=== PATIENT | female | born 1985 | race Two or more races ===

== ENCOUNTER 2019-01-10 16:46 | Emergency (ER) | payer OTHER ==
[2019-01-10 16:57] VITALS: BP 108/56; PULSE 94; TEMP 98.2; BMI 25.3
--- NOTE | 2019-01-10 17:26 | PDOC ---
History of Present Illness - General Chief Complaint: Vaginal Bleeding Stated Complaint: VAGINAL BLEEDING Time Seen by Provider: 01/10/19 17:18 Past History - Travel Traveled outside of the country in the last 30 days: No Close contact w/someone who was outside of country & ill: No - Past History Allergies/Adverse Reactions: Allergies No Known Allergies Allergy (Verified 01/10/19 16:52) Immunization Status Up to Date: Yes - Social History Smoking Status: Never smoked Review of Systems - Review of Systems Able to Perform ROS?: Yes Comments:: 01/10/19 19:36 CONSTITUTIONAL: Absent: fever, chills, diaphoresis, generalized weakness, malaise, loss of appetite HEENT: Absent: rhinorrhea, nasal congestion, throat pain, throat swelling, difficulty swallowing, mouth swelling, ear pain, eye pain, visual Changes CARDIOVASCULAR: Absent: chest pain, loss of consciousness, palpitations, irregular heart rate, peripheral edema RESPIRATORY: Absent: cough, shortness of breath, dyspnea with exertion, orthopnea, wheezing, stridor, hemoptysis GASTROINTESTINAL: Absent: abdominal pain, abdominal distension, nausea, vomiting, diarrhea, constipation, melena, hematochezia GENITOURINARY: Present: vaginal bleeding Absent: dysuria, frequency, urgency, hesitancy, hematuria, flank pain, genital pain MUSCULOSKELETAL: Absent: myalgia, arthralgia, joint swelling SKIN: Absent: rash, itching, pallor HEMATOLOGIC/IMMUNOLOGIC: Absent: easy bleeding, easy bruising, lymphadenopathy, frequent infections ENDOCRINE: Absent: unexplained weight gain, unexplained weight loss, heat intolerance, cold intolerance NEUROLOGIC: Absent: headache, focal weakness or paresthesias, dizziness, unsteady gait, seizure, mental status changes, bladder or bowel incontinence PSYCHIATRIC: Absent: anxiety, depression, suicidal or homicidal ideation, hallucinations. Is the patient limited [place] proficient: No *Physical Exam - Vital Signs Last Vital Signs Temp Pulse Resp BP Pulse Ox 98.2 F 94 H 17 108/56 L 100 01/10/19 16:53 01/10/19 16:53 01/10/19 16:53 01/10/19 16:53 01/10/19 16:53 - Physical Exam Comments: 01/10/19 19:37 GENERAL: Well developed, well nourished. Awake and alert. No acute distress. HEENT: Normocephalic, atraumatic. PERRLA, EOMI. No conjunctival pallor. Sclera are non- icteric. Moist mucous membranes. Oropharynx is clear. NECK: Supple. Full ROM. No JVD. Carotid pulses 2+ and symmetric, without bruits. No thyromegaly. No lymphadenopathy. CARDIOVASCULAR: Regular rate and rhythm. No murmurs, rubs, or gallops. Distal pulses are 2+ and symmetric. PULMONARY: No evidence of respiratory distress. Lungs clear to auscultation bilaterally. No wheezing, rales or rhonchi. ABDOMINAL: Soft. Non-tender. Non-distended. No rebound or guarding. No organomegaly. Normoactive bowel sounds. Pelvic: External genitalia normal without lesions.Vaginal vault is with dark brown discharge. No clots noted. Cervix is long and closed. No cervical motion tenderness.Uterus is nontender and normal in size. Adnexa are nontender and without masses. MUSCULOSKELETAL Normal range of motion at all joints. No bony deformities or tenderness. No CVA tenderness. EXTREMITIES: No cyanosis. No clubbing. No edema. No calf tenderness. SKIN: Warm and dry. Normal capillary refill. No rashes. No jaundice. NEUROLOGICAL: Alert, awake, appropriate. Cranial nerves 2-12 intact. No deficits to light touch and temperature in face, upper extremities and lower extremities. No motor deficits in the in face, upper extremities and lower extremities. Normoreflexic in the upper and lower extremities. Normal speech. Toes are down- going bilaterally. Gait is normal without ataxia. PSYCHIATRIC: Cooperative. Good eye contact. Appropriate mood and affect. ED Treatment Course - LABORATORY CBC & Chemistry Diagram: 01/10/19 18:00 01/10/19 18:00 - RADIOLOGY Radiology Studies Ordered: Category Date Time Status TRANSVAGINAL US PREG [US] Stat Ultrasound 01/10/19 17:19 Ordered *DC/Admit/Observation/Transfer Diagnosis at time of Disposition: Miscarriage - Discharge Dispostion Disposition: HOME Condition at time of disposition: Stable Decision to Admit order: No - Referrals Referrals: Racquel Brower DO [Staff Physician] - - Patient Instructions Printed Discharge Instructions: DI for Miscarriage Additional Instructions: You most likely had a miscarriage Please return in 2 days to have repeat blood work Drink plenty of fluids You may take Tylenol as needed for pain. Follow the instructions on the bottle Return to the ED for any new or worsening symptoms - Post Discharge Activity
[2019-01-10 18:08] LABS: BASO % 0.5 % (0-2.0); EOS % 1.5 % (0-4.5); HEMATOCRIT 40.1 % (32.4-45.2); HEMOGLOBIN 13.1 GM/dL (10.7-15.3); LYMPH % 19.8 % (8-40); MCH 28.2 pg (25.7-33.7); MCHC 32.7 g/dl (32.0-36.0); MEAN CELL VOLUME 86.3 fl (80-96); MEAN PLT VOLUME 7.8 fl (7.5-11.1); MONO % 6.9 % (3.8-10.2); NEUT % 71.3 % (42.8-82.8); PLATELET COUNT 317 K/MM3 (134-434); RBC 4.65 M/mm3 (3.60-5.2); RDW 13.4 % (11.6-15.6); WHITE BLOOD COUNT 8.3 K/mm3 (4.0-10.0)
[2019-01-10 18:40] LABS: ALBUMIN 3.9 g/dl (3.4-5.0); ALK PHOS 63 U/L (45-117); BILIRUBIN,TOTAL 0.3 mg/dL (0.2-1); BLOOD UREA NITROGEN 13 mg/dL (7-18); CALCIUM 9.3 mg/dL (8.5-10.1); CO2 23 mmol/L (21-32); CREATININE 0.5 mg/dL (0.55-1.3); GLUCOSE,RANDOM 131 mg/dL (74-106); SGOT/AST 15 U/L (15-37); SGPT/ALT 19 U/L (13-61); TOT PROT 7.5 g/dl (6.4-8.2)
[2019-01-10 18:47] LABS: EPI CELLS 2.4 /HPF (0-5); URINE APPEARANCE CLEAR; URINE BACTERIA 59.8 /hpf (NEGATIVE); URINE BILIRUBIN NEGATIVE (NEGATIVE); URINE CASTS 1 /hpf (0-8); URINE COLOR YELLOW; URINE GLUCOSE (UA) 1+ (NEGATIVE); URINE KETONE NEGATIVE (NEGATIVE); URINE LEUK ESTERASE TRACE (NEGATIVE); URINE NITRITE NEGATIVE (NEGATIVE); URINE PROTEIN NEGATIVE (NEGATIVE); URINE RBC 28 /hpf (0-4); URINE WBC 1 /hpf (0-5)
[2019-01-10 19:28] LABS: ANION GAP 8 MMOL/L (8-16); CHLORIDE 108 mmol/L (98-107); SODIUM 139 mmol/L (136-145)
== END 2019-01-10 21:55 | disposition home or self-care (01) ==
LOC: JER 16:46
DX: O26.891 Other specified pregnancy related conditions, first trimester (principal); O02.1 Missed abortion; Z3A.01 Less than 8 weeks gestation of pregnancy
CPT/HCPCS: 36415; 76817-TC; 80053; 81003; 84702; 85025; 86850; 86900; 86901; 87086; 99282-25

== ENCOUNTER 2019-01-16 11:07 | Emergency (ER) | payer OTHER ==
[2019-01-16 11:28] VITALS: BP 101/60; PULSE 82; TEMP 98.1; BMI 25.1
--- NOTE | 2019-01-16 12:08 | PDOC ---
History of Present Illness - General History Source: Patient, Spouse <Purnima Blanco - Last Filed: 01/16/19 16:46> <Allyn Solares - Last Filed: 01/16/19 18:46> - General Chief Complaint: Vaginal Bleeding Stated Complaint: POSSIBLE MISSCARIAGE Time Seen by Provider: 01/16/19 11:57 Past History - Past Medical History COPD: No - Immunization History Immunization Up to Date: Yes - Suicide/Smoking/Psychosocial Hx Smoking History: Never smoked Hx Alcohol Use: No Drug/Substance Use Hx: No <Purnima Blanco - Last Filed: 01/16/19 16:46> <Allyn Solares - Last Filed: 01/16/19 18:46> - Past Medical History Allergies/Adverse Reactions: Allergies Allergy/AdvReac Type Severity Reaction Status Date / Time No Known Allergies Allergy Verified 01/16/19 11:24 Review of Systems - Review of Systems Constitutional: No: Chills, Fever ABD/GI: No: Nausea, Poor Fluid Intake, Vomiting : No: Dysuria, Flank Pain, Hematuria Musculoskeletal: No: Back Pain <Purnima Blanco - Last Filed: 01/16/19 16:46> *Physical Exam - Vital Signs Last Vital Signs Temp Pulse Resp BP Pulse Ox 98.1 F 82 17 101/60 98 01/16/19 11:25 01/16/19 11:25 01/16/19 11:25 01/16/19 11:25 01/16/19 11:25 - Physical Exam General Appearance: Yes: Appropriately Dressed. No: Apparent Distress HEENT: positive: Normal Voice Neck: positive: Supple Respiratory/Chest: negative: Respiratory Distress Gastrointestinal/Abdominal: positive: Soft. negative: Tender Integumentary: positive: Dry, Warm Neurologic: positive: Fully Oriented, Alert, Normal Mood/Affect <Purnima Blanco Last Filed: 01/16/19 16:46> - Vital Signs Last Vital Signs Temp Pulse Resp BP Pulse Ox 98.1 F 82 17 101/60 98 01/16/19 11:25 01/16/19 11:25 01/16/19 11:25 01/16/19 11:25 01/16/19 11:25 <Allyn Solares - Last Filed: 01/16/19 18:46> ED Treatment Course - ADDITIONAL ORDERS Additional order review: Laboratory Results 01/16/19 01/16/19 13:52 13:52 Beta HCG, Quant 451.3 Urine Color Yellow Urine Appearance Clear Urine pH 7.5 Ur Specific [place] 1.016 Urine Protein Negative Urine Glucose (UA) Negative Urine Ketones Negative Urine Blood 3+ H Urine Nitrite Negative Urine Bilirubin Negative Urine Urobilinogen 0.2 Ur Leukocyte Esterase Negative Urine WBC (Auto) 1 Urine RBC (Auto) 43 Urine Casts (Auto) 1 U Epithel Cells (Auto) 1.7 Urine Bacteria (Auto) 35.9 <Allyn Solares - Last Filed: 01/16/19 18:46> Medical Decision Making - Medical Decision Making 01/16/19 12:04 33 yo F, no pmhx, (s/p 2 spon ABs), ~9 weeks by dates and dx w/ possible spon AB a week ago at [facility] after p/w vaginal bleeding. Beta 414 w/ no e/o preg on US then. States she saw her DIRECTOR FOOD SAFETY 4 days ago and received call last night about blood test results and told to come back to ED though reasons unclear from hx. States only spotting now. No abd pain, dysuria, n/v/f/c see exam Possible spon AB Beta 414 w/ no IUP/adnexal mass on US / Vag bleed since improved -will rpt beta today 01/16/19 14:52 Beta 451 today. Will rpt US today 01/16/19 16:46 US today read as no IUP or adnexal mass. Case d/w ED attg who states pt can be discharged to f/u with her manager rn Saturday. Reasons to return to ED discussed with patient <Purnima Blanco - Last Filed: 01/16/19 16:46> *DC/Admit/Observation/Transfer <Purnima Blanco - Last Filed: 01/16/19 16:46> - Attestations Physician Attestion: I reviewed the case with the mid-level practitioner and agree with the mid- level practitioner's assessment, diagnosis and disposition. <Allyn Solares - Last Filed: 01/16/19 18:46> Diagnosis at time of Disposition: Miscarriage - Discharge Dispostion Disposition: HOME Condition at time of disposition: Stable - Patient Instructions Additional Instructions: Your beta today was 451, it was 414 on for 01/10. Your repeat ultrasound today shows no intrauterine or any evidence of ectopic. Please follow-up with your DIRECTOR [employer]AF[employer] on Saturday. Return to ED for worsening of symptoms as discussed today
[2019-01-16 15:10] LABS: EPI CELLS 1.7 /HPF (0-5/HPF); PH,URINE 7.5 (5.0-8.0); URINE APPEARANCE CLEAR; URINE BACTERIA 35.9 /hpf (NEGATIVE); URINE BILIRUBIN NEGATIVE (NEGATIVE); URINE CASTS 1 /hpf (0-8); URINE COLOR YELLOW; URINE GLUCOSE (UA) NEGATIVE (NEGATIVE); URINE KETONE NEGATIVE (NEGATIVE); URINE LEUK ESTERASE NEGATIVE (NEGATIVE); URINE NITRITE NEGATIVE (NEGATIVE); URINE PROTEIN NEGATIVE (NEGATIVE); URINE RBC 43 /hpf (0-4); URINE UROBILINOGEN 0.2 mg/dL (0.2-1.0); URINE WBC 1 /hpf (0-5)
== END 2019-01-16 17:02 | disposition home or self-care (01) ==
LOC: JER 11:07
DX: O26.891 Other specified pregnancy related conditions, first trimester (principal); O02.1 Missed abortion; Z3A.09 9 weeks gestation of pregnancy
CPT/HCPCS: 36415; 76817-TC; 81003; 84702; 87086; 99283-25